=== PATIENT | female | born 2000 | race Two or more races ===

== ENCOUNTER 2022-07-26 15:52 | Inpatient (IN) | payer MEDICAID ==
[~2022-07-26] VITALS: Ht 165.1 cm; Wt 74.8 kg
[2022-07-26] MEDS ORDERED: ACETAMINOPHEN 325MG TABLET PO ONE (16:30)
[2022-07-26 16:51] LABS: BASOPHILS % 0.2 % (0.0-2.0); EOSINOPHILS % 0.4 % (0.0-5.0); HEMATOCRIT. 36.3 % (36.0-48.0); HEMOGLOBIN. 11.7 g/dL (12.0-16.0); LYMPHOCYTES % 12.5 % (20.0-50.0); MEAN CORPUSCULAR HEMOGLOBIN 24.7 pg (28.0-32.0); MEAN CORPUSCULAR VOLUME 76.7 fL (81.0-99.0); MEAN PLATELET VOLUME 9.9 fl (7.4-10.4); MONOCYTES % 7.6 % (2.0-8.0); NEUTROPHILS % 79.3 % (40.0-76.0); PLATELET 174 x1000/uL (130-400); RED BLOOD CELL COUNT 4.73 mill/uL (4.2-5.4); RED CELL DISTRIBUTION WIDTH 16.3 % (11.6-14.6)
[2022-07-26 17:03] LABS: CHLORIDE 103 mEq/L (98-107)
[2022-07-26 17:26] LABS: B-HCG QUANTITATIVE 114323 mIU/mL (<3)
[2022-07-26 19:19] LABS: CLARITY URINE TURBID (CLEAR); COLOR URINE YELLOW (YELLOW); KETONES URINE 3+ (NEGATIVE); LEUKOCYTE ESTERASE URINE 3+ (NEGATIVE); NITRITE URINE POSITIVE (NEGATIVE); OCCULT BLOOD URINE 2+ (NEGATIVE); PH URINE 5.5 (4.5-8.0); PROTEIN URINE 2+ (NEGATIVE); SPECIFIC GRAVITY URINE 1.016 (1.005-1.030); UROBILINOGEN URINE 0.2 E.U./dL (0.2-1.0)
[2022-07-26] MEDS ORDERED: CEFTRIAXONE 1 G PREMIX 50 ML IV ONE (22:00)
[2022-07-26] MEDS: ACETAMINOPHEN 325MG TABLET PO NR ×2 (23:00→23:33)
[2022-07-26] MEDS ORDERED: METOCLOPRAMIDE HCL 10MG/2ML VIAL IV ONE (23:30)
[2022-07-27 07:01] VITALS: BP 97/47
[2022-07-27] MEDS ORDERED: IPRATROPIUM/ALBUTEROL 0.5-3(2.5)MG/3ML NEB HHN PRN (08:30)
[2022-07-27] MEDS ORDERED: ACETAMINOPHEN 325MG TABLET PO PRN (08:30)
[2022-07-27] MEDS ORDERED: DOCUSATE SODIUM 100MG CAPSULE PO PRN (08:30)
[2022-07-27] MEDS ORDERED: LORAZEPAM 0.5MG TABLET PO PRN (08:30)
[2022-07-27] MEDS ORDERED: CLONIDINE 0.1MG TABLET PO PRN (08:30)
[2022-07-27] MEDS ORDERED: ONDANSETRON HCL 4MG/2ML INJ IV PRN (08:30)
[2022-07-27] MEDS ORDERED: HYDROCODONE/ACETAMINOPHEN 5/325MG TABLET PO PRN (08:30)
[2022-07-27] MEDS ORDERED: SODIUM CHLORIDE 0.9% 250 ML IV ONE (08:45)
[2022-07-27] MEDS ORDERED: NALOXONE HCL 0.4MG/ML VIAL IV PRN (09:00)
[2022-07-27] MEDS: ACETAMINOPHEN 325MG TABLET PO PRN (09:26)
[2022-07-27] MEDS: PRENATAL VIT/FE FUMARATE/FA TABLET PO SCH (09:27)
[2022-07-27] MEDS: FERROUS SULFATE 325MG TABLET PO SCH (09:27)
[2022-07-27 10:18] VITALS: BP 92/47
[2022-07-27 20:00] VITALS: BP 101/59
[2022-07-27] MEDS: CEFTRIAXONE 1,000 MG in DEXTROSE 5% WATER 50 ML IV SCH (20:41)
[2022-07-28] VITALS: BP 109/59
[2022-07-28 04:00] VITALS: BP 105/62
[2022-07-28 07:30] LABS: BASOPHILS % 0.1 % (0.0-2.0); EOSINOPHILS % 0.6 % (0.0-5.0); HEMATOCRIT. 35.3 % (36.0-48.0); HEMOGLOBIN. 11.7 g/dL (12.0-16.0); LYMPHOCYTES % 16.9 % (20.0-50.0); MEAN CORPUSCULAR HEMOGLOBIN 24.9 pg (28.0-32.0); MEAN CORPUSCULAR VOLUME 74.8 fL (81.0-99.0); MEAN PLATELET VOLUME 10.1 fl (7.4-10.4); MONOCYTES % 7.9 % (2.0-8.0); NEUTROPHILS % 74.5 % (40.0-76.0); PLATELET 180 x1000/uL (130-400); RED BLOOD CELL COUNT 4.71 mill/uL (4.2-5.4); RED CELL DISTRIBUTION WIDTH 16.4 % (11.6-14.6)
[2022-07-28 07:32] LABS: CHLORIDE 105 mEq/L (98-107)
[2022-07-28 08:00] VITALS: BP 116/78
[2022-07-28] MEDS: FERROUS SULFATE 325MG TABLET PO SCH (08:59)
[2022-07-28] MEDS: PRENATAL VIT/FE FUMARATE/FA TABLET PO SCH (08:59)
[2022-07-28 12:00] VITALS: BP 109/62
[2022-07-28 16:00] VITALS: BP 116/61
[2022-07-28] MEDS ORDERED: POLYETHYLENE GLYCOL 3350 (17GM) 1 DOSE PACK PO SCH (18:30)
[2022-07-28] MEDS: ACETAMINOPHEN 325MG TABLET PO PRN (18:51)
[2022-07-28 20:00] VITALS: BP 108/60
[2022-07-28] MEDS: CEFTRIAXONE 1,000 MG in DEXTROSE 5% WATER 50 ML IV SCH (20:19)
[2022-07-28] MEDS ORDERED: LACTULOSE 20G/30ML UDC PO PRN (21:00)
[2022-07-29] VITALS: BP 96/57
[2022-07-29 04:00] VITALS: BP 100/55
[2022-07-29 07:43] LABS: CHLORIDE 105 mEq/L (98-107)
[2022-07-29 07:45] LABS: BASOPHILS % 0.1 % (0.0-2.0); EOSINOPHILS % 1.2 % (0.0-5.0); HEMOGLOBIN. 11.4 g/dL (12.0-16.0); LYMPHOCYTES % 25.4 % (20.0-50.0); MEAN CORPUSCULAR HEMOGLOBIN 24.7 pg (28.0-32.0); MEAN CORPUSCULAR VOLUME 73.8 fL (81.0-99.0); MEAN PLATELET VOLUME 10.2 fl (7.4-10.4); MONOCYTES % 9.9 % (2.0-8.0); NEUTROPHILS % 63.4 % (40.0-76.0); PLATELET 180 x1000/uL (130-400); RED BLOOD CELL COUNT 4.61 mill/uL (4.2-5.4); RED CELL DISTRIBUTION WIDTH 16.2 % (11.6-14.6)
[2022-07-29 08:00] VITALS: BP 91/60
[2022-07-29] MEDS: PRENATAL VIT/FE FUMARATE/FA TABLET PO SCH (08:57)
[2022-07-29] MEDS: FERROUS SULFATE 325MG TABLET PO SCH (08:57)
[2022-07-29] MEDS ORDERED: POLYETHYLENE GLYCOL 3350 (17GM) 1 DOSE PACK PO SCH (09:00)
[2022-07-29] MEDS ORDERED: CEPH500C2 MT (11:06)
[2022-07-29 11:31] VITALS: BP 91/60
[2022-07-29 12:00] VITALS: BP 101/58
== END 2022-07-29 11:55 | disposition home or self-care (01) | DRG 566 ==
LOC: ER 15:52 → 6EST 22:40 → EDBEDREQ 23:08 → EDBEDREQTM 23:08
PROVIDERS: ADMIT Internal Medicine; ATTEND Internal Medicine
DX: O23.01 Infections of kidney in pregnancy, first trimester (principal); R65.10 Systemic inflammatory response syndrome (SIRS) of non-infectious origin without acute organ dysfunction; O21.9 Vomiting of pregnancy, unspecified; O23.41 Unspecified infection of urinary tract in pregnancy, first trimester; O99.011 Anemia complicating pregnancy, first trimester; Z3A.12 12 weeks gestation of pregnancy; N39.0 Urinary tract infection, site not specified
CPT/HCPCS: 36415; 76801; 80048; 81003; 84145; 84702; 85025; 87077; 87186; 99285; C1893; J0696; J2765; J7060

== ENCOUNTER 2022-10-15 16:32 | Observation (INO) | payer MEDICAID ==
[~2022-10-15] VITALS: Ht 165.1 cm; Wt 72.6 kg
[~2022-10-15 16:32] MED LIST: CEPH500C2 MT
[2022-10-15 18:34] LABS: CLARITY URINE CLOUDY (CLEAR); COLOR URINE YELLOW (YELLOW); KETONES URINE NEGATIVE (NEGATIVE); LEUKOCYTE ESTERASE URINE 3+ (NEGATIVE); NITRITE URINE NEGATIVE (NEGATIVE); OCCULT BLOOD URINE NEGATIVE (NEGATIVE); PH URINE 8.5 (4.5-8.0); PROTEIN URINE TRACE (NEGATIVE); SPECIFIC GRAVITY URINE 1.013 (1.005-1.030); UROBILINOGEN URINE 0.2 E.U./dL (0.2-1.0)
[2022-10-15] MEDS ORDERED: ACETAMINOPHEN 500MG TABLET PO NR (19:00)
[2022-10-15] MEDS ORDERED: LACTATED RINGERS 1,000 ML IV SCH (20:15)
[2022-10-15] MEDS ORDERED: PNV1TABL50 MT (20:50)
[2022-10-15] MEDS ORDERED: FOLI20CA MT (20:50)
[2022-10-15] MEDS ORDERED: FERR325T6 MT (20:50)
[2022-10-15] MEDS ORDERED: CEFAZOLIN 2,000 MG in DEXT 5% WATER 100 ML IV NR (21:00)
== END 2022-10-15 22:15 | disposition home or self-care (01) ==
LOC: 8 EST LDRP 16:32
PROVIDERS: ADMIT Obstetrics & Gynecology; ATTEND Obstetrics & Gynecology
DX: O99.891 Other specified diseases and conditions complicating pregnancy (principal); M54.9 Dorsalgia, unspecified; R10.9 Unspecified abdominal pain; O26.892 Other specified pregnancy related conditions, second trimester; N89.8 Other specified noninflammatory disorders of vagina; Z3A.27 27 weeks gestation of pregnancy
CPT/HCPCS: 59025; 76805; 81003; 87086; 87186; 96365; J0690; J7060; 99281; G0378; J7120

== ENCOUNTER 2023-01-09 14:52 | Emergency (ER) | payer MEDICAID ==
[~2023-01-09] VITALS: Ht 160 cm; Wt 87.3 kg
[~2023-01-09 14:52] MED LIST changes: -CEPH500C2 MT; +FERR325T6 MT; +FOLI20CA MT; +PNV1TABL50 MT
[2023-01-09] MEDS ORDERED: ONDANSETRON HCL 4MG/2ML INJ IM STA (16:56)
[2023-01-09] MEDS ORDERED: ACETAMINOPHEN 325MG TABLET PO STA (16:56)
[2023-01-09 16:58] VITALS: BP 109/63
== END 2023-01-09 19:24 | disposition home or self-care (01) ==
LOC: ER 14:52
DX: O26.893 Other specified pregnancy related conditions, third trimester (principal); R51.9 Headache, unspecified; Z3A.35 35 weeks gestation of pregnancy
CPT/HCPCS: 96372; 99283; J2405

== ENCOUNTER 2024-10-09 14:40 | Emergency (ER) | payer MEDICAID ==
[~2024-10-09] VITALS: Ht 165.1 cm; Wt 68.0 kg
[2024-10-09 14:56] VITALS: BP 115/60; TEMP 37; O2SAT 99
[2024-10-09 14:57] VITALS: PULSE 88; RESP 16; O2SAT 99
[2024-10-09 15:42] LABS: BASOPHILS % 0.1 % (0.0-2.0); DIFFERENTIAL COMMENT 0; EOSINOPHILS % 1.1 % (0.0-5.0); HEMATOCRIT. 39.7 % (36.0-48.0); HEMOGLOBIN. 12.5 g/dL (12.0-16.0); MEAN CORPUSCULAR HEMOGLOBIN 23.7 pg (28.0-32.0); MEAN CORPUSCULAR HGB CONC 31.4 g/dL (31.0-37.0); MEAN CORPUSCULAR VOLUME 75.5 fL (81.0-99.0); MEAN PLATELET VOLUME 10.2 fl (7.4-10.4); MONOCYTES % 5.7 % (2.0-8.0); NEUTROPHILS % 64.1 % (40.0-76.0); PLATELET 220 x1000/uL (130-400); RED BLOOD CELL COUNT 5.26 mill/uL (4.2-5.4); RED CELL DISTRIBUTION WIDTH 14.5 % (11.6-14.6); WHITE BLOOD COUNT 10.8 x1000/uL (4.5-11.0)
[2024-10-09 16:00] LABS: ALANINE AMINOTRANSFERASE 16 IU/L (10-49); ALBUMIN 4.1 g/dL (3.2-4.8); ASPARTATE AMINOTRANSFERASE 17 IU/L (<34); BILIRUBIN DIRECT 0.2 mg/dL (<=3.0); BILIRUBIN TOTAL 0.8 mg/dL (0.1-1.0); PROTEIN TOTAL 7.4 g/dL (6.0-8.3); TROPONIN I HIGH SENSITIVITY < 4 ng/L (3.0-34)
[2024-10-09] MEDS ORDERED: IBUP-2029 MT (16:15)
[2024-10-09] MEDS: IBUPROFEN 600MG TABLET PO ONE (16:15)
== END 2024-10-09 16:35 | disposition home or self-care (01) ==
LOC: ER 15:00
DX: R07.89 Other chest pain (principal)
CPT/HCPCS: 36415; 71045; 80076; 84484; 85025; 93005; 99285